=== PATIENT | male | born 2000 | race Caucasian/White ===

== ENCOUNTER 2024-09-22 03:46 | Emergency (ER) | payer OTHER, BC ==
[2024-09-22] MEDS: Ketorolac 30 MG/ML SDV IM ONE (04:05)
== END 2024-09-22 05:09 | disposition home or self-care (01) ==
LOC: JD.ED 03:46
DX: S62.325A Displaced fracture of shaft of fourth metacarpal bone, left hand, initial encounter for closed fracture (principal); Z79.899 Other long term (current) drug therapy; W23.0XXA Caught, crushed, jammed, or pinched between moving objects, initial encounter
CPT/HCPCS: 29125; 73130-26-LT; 73130-LT; 96372; 99283; 99283-25; J1885